=== PATIENT | female | born 1995 | race Caucasian/White ===

== ENCOUNTER 2021-08-20 16:30 | Emergency (ER) | payer OTHER ==
[~2021-08-20] VITALS: Ht 160 cm; Wt 54.4 kg
[2021-08-20] MEDS ORDERED: LORazepam INJ 2 MG/ML (ATIVAN) VIAL IVP ONE (17:15)
[2021-08-20] MEDS ORDERED: ONDANSETRON 4 MG/2 ML (SDV) Z0FRAN IVP ONE (17:15)
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
[2021-08-20] MEDS ORDERED: IOHEXOL 350 MG/ML 100 ML (OMNIPAQUE 350) VIAL IV ONE (18:00)
[2021-08-20] MEDS ORDERED: HOLD METFORMIN - RECEIVED CONTRAST 20 ML VIAL IV SCH (18:00)
[2021-08-20] MEDS ORDERED: NS 100 ML (IVPB) BAG IV ONE (18:00)
[2021-08-20 18:30] VITALS: BP 132/88
[2021-08-20] MEDS ORDERED: KETOROLAC 30 MG/ML VIAL IVP ONE (18:30)
== END 2021-08-20 18:30 | disposition home or self-care (01) ==
LOC: ER 16:38
DX: M54.2 Cervicalgia (principal); M54.6 Pain in thoracic spine; I10 Essential (primary) hypertension
CPT/HCPCS: 70450; 71260; 72125

== ENCOUNTER 2022-07-24 08:02 | Emergency (ER) | payer BC ==
[~2022-07-24] VITALS: Ht 160 cm; Wt 62.0 kg
[2022-07-24 08:10] VITALS: BP 146/99
--- NOTE | 2022-07-24 08:30 | ED General ---
General Chief Complaint: Cough/Cold/Flu Symptoms Stated Complaint: CHEST CONGESTION | FLU A + | 9WKS Nursing Triage Note: ARRIVED VIA AMB TO ROOM 10. PT STATES SHE TESTED POSITIVE FOR FLU A AND IS 9 WEEKS GESTATION. PT COMPLAINS OF CONT FEVER, SOA, VOMITING, AND PAIN IN HER CHEST. PT STATES SHE TOOK TYLENOL AT 0200. HAS A SCRIPT FOR PROMETHAZINE. Source of Information: Patient Exam Limitations: No Limitations History of Present Illness Date Seen by Provider: Jul 24, 2022 Time Seen by Provider: 08:29 Initial Comments Patient is a 27-year-old G3, P2 approximately 9 weeks EGA who presents emergency room with a chief complaint of chest burning, discomfort, nausea and influenza A at walk-in clinic yesterday. Patient states that she has been taking Tylenol, promethazine without relief of symptoms. She is on Tamiflu. SHe has had nausea vomiting and diarrhea for the last 3 days, woke up with the burning and congestion in the morning. She is not even able to hold down water. She states her urine is clear, no dysuria. No abnormal vaginal discharge. She had her dating ultrasound yesterday. SHe sees Dr. Kasper at [facility] for care. Cough is nonproductive. She has used Delsym. All other review of systems reviewed and negative except as stated. Timing/Duration: 4-6 Hours Severity: Severe Associated Systoms: Chest Pain ("Burning"), Cough, Nausea/Vomiting, Shortness of Air Allergies and Home Medications Allergies Coded Allergies: No Known Drug Allergies (Unverified , 08/20/21) Patient Home Medication List Home Medication List Reviewed: Yes Ondansetron (Ondansetron Odt) 4 Mg Tab.rapdis, 4 MG SL Q8H PRN for NAUSEA/VOMITING Prescribed by: BELLE BARRIGA on 07/24/2252 Pseudoephedrine HCl (Pseudoephedrine HCl) 60 Mg Tablet, 60 MG PO Q6H PRN for congestion Prescribed by: BELLE BARRIGA on 07/24/2252 Review of Systems Review of Systems Constitutional: see HPI, chills EENTM: throat pain Respiratory: cough Cardiovascular: chest pain Gastrointestinal: nausea, vomiting Genitourinary: no symptoms reported : Yes Musculoskeletal: no symptoms reported Skin: no symptoms reported All Other Systems Reviewed Negative Unless Noted: Yes Past Qpznvre-Wycgvk-Lqwpch Hx Patient Social History Tobacco Use?: No Substance use?: No Alcohol Use?: No Immunizations Up To Date Second COVID19 Vaccination Jez: UNKNOWN COVID19 Vaccine Team Assistant: UNKNOWN Past Medical History Surgeries: No Respiratory: No Cardiac: Yes Hypertension 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 oz. 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 Skin: Normal Color, Warm/Dry Progress/Results/Core Measures Suspected Sepsis SIRS Temperature: Pulse: 123 Respiratory Rate: 16 Blood Pressure 146 /99 Mean: 115 Results/Orders My Orders Orders - BELLE BARRIGA MD Antacid Suspension (Mylanta Suspension (07/24/22 08:45) Lidocaine 2% Viscous 15 Ml (Xylocaine Vi (07/24/22 08:45) Heart Tones (07/24/22 08:45) Famotidine Tablet (Pepcid Tablet) (07/24/22 09:00) Medications Given in ED Current Medications Medications Dose Ordered Sig/Nery Route Start Time Stop Time Status Last Admin Dose Admin Al Hydrox/Mg Hydrox/Simethicone 30 ml ONCE ONCE PO 07/24/22 08:45 07/24/22 08:46 DC 07/24/22 08:58 30 ML Famotidine 20 mg ONCE ONCE PO 07/24/22 09:00 07/24/22 09:01 DC 07/24/22 08:59 20 MG Lidocaine HCl 5 ml ONCE ONCE PO 07/24/22 08:45 07/24/22 08:46 DC 07/24/22 08:58 5 ML Vital Signs/I&O 07/24/22 08:10 Temp 38.2 Pulse 123 Resp 16 B/P (MAP) 146/99 (115) Pulse Ox 99 O2 Delivery Room Air Capillary Refill : Less Than 3 Seconds Blood Pressure Mean: 115 Progress Note : Time: 09:07 Progress Note Patient is a 27-year-old female burning throat and upper chest pain. Diagnosed with influenza a yesterday. Heart positive heart tones in the 170s. Clinically not dehydrated. Considered IV fluid with saline hydration however she had moist mucous membranes, does not appear dry. Consideration for imaging However history and physical exam do not support need. She was treated with maalox and lidocaine and pepcid. Will write for zofran and advise pepcid over the counter. REcommend follow up with OB and continue tamiflu. Departure Impression Primary Impression: Influenza A Additional Impressions: GERD (gastroesophageal reflux disease) Qualified Codes: K21.9 - Gastro-esophageal reflux disease without esophagitis 9 weeks gestation of Disposition: 01 HOME, SELF-CARE Condition: Improved Departure-Patient Inst. Decision time for Depature: 09:10 Referrals: ROJAS KASPER MD, JULIE A MD (PCP/Family) Primary Care Physician Patient Instructions: Acid Reflux (Gastroesophageal Reflux Disease) During Pre gnancy Add. Discharge Instructions: Consider starting over the counter Pepcid 20mg tablets twice daily to help with acid-reflux type symptoms. You can supplement with Maalox at home as needed/ follow packaging directions. Zofran 4mg tablets every 8 hours as needed for nausea. Vitamin B6 over the counter with "unisom" over the counter can also help with na usea. John (john ismael, john candies) can also help with nausea. Return to the Emergency Department for any new, concerning or emergent complaints. Scripts Pseudoephedrine HCl (Pseudoephedrine HCl) 60 Mg Tablet 60 MG PO Q6H PRN for congestion, #30 TAB Prov: BELLE BARRIGA MD 07/24/22 Ondansetron (Ondansetron Odt) 4 Mg Tab.rapdis 4 MG SL Q8H PRN for NAUSEA/VOMITING, #20 TAB Prov: BELLE BARRIGA MD 07/24/22 Copy Copies To 1: ROJAS KASPER MD, KATHRYN M MD Jul 24, 2022 08:30
[2022-07-24] MEDS ORDERED: LIDOCAINE 2% VISCOUS 15 ML UDC PO ONE (08:45)
[2022-07-24] MEDS ORDERED: ANTACID SUSP 30 ML UDC (MYLANTA) PO ONE (08:45)
[2022-07-24] MEDS ORDERED: FAMOTIDINE 20 MG (PEPCID) TABLET PO ONE (09:00)
[2022-07-24] MEDS ORDERED: PSEU60TA88 PO (09:52)
[2022-07-24] MEDS ORDERED: ONDA4TAB11 SL (09:52)
== END 2022-07-24 09:55 | disposition home or self-care (01) ==
LOC: EDUNIT# 08:02 → ER 08:06
DX: O98.511 Other viral diseases complicating pregnancy, first trimester (principal); J10.1 Influenza due to other identified influenza virus with other respiratory manifestations; O99.611 Diseases of the digestive system complicating pregnancy, first trimester; K21.9 Gastro-esophageal reflux disease without esophagitis; Z3A.09 9 weeks gestation of pregnancy

== ENCOUNTER → 2022-07-29 | Outpatient (CLI) | payer BC, OTHER ==
[~2022-07-29] MED LIST: ONDA4TAB11 SL; PSEU60TA88 PO
== END ==
LOC: CARD 15:00
PROVIDERS: ATTEND Family Medicine
DX: I34.0 Nonrheumatic mitral (valve) insufficiency (principal); O10.919 Unspecified pre-existing hypertension complicating pregnancy, unspecified trimester
CPT/HCPCS: 93306

== ENCOUNTER 2022-12-25 15:27 | Outpatient (CLI) | payer BC ==
[~2022-12-25] VITALS: Ht 161 cm; Wt 62.0 kg
[2022-12-25 15:30] VITALS: BP 132/84
[2022-12-25 16:25] VITALS: BP 140/97
--- NOTE | 2022-12-26 08:15 | Physician Query-Final Dx ---
DONNA,12/26/22 0815: Clinic Account Progress/Dx Physician Query: Please give diagnosis Please include # weeks gestation Date of Service Dec 25, 2022 at 15:27 ROJAS NAVARRETE MD 12/26/22 2142: Clinic Account Progress/Dx DIAGNOSIS: Diagnosis Pelvic pain in - no contractions, reassuring status Chronic hypertension complicating - blood pressure controlled on labe talol Third trimester 32 weeks gestation DONNA,SepDec 26, 2022 08:15 ROJAS NAVARRETE MD Dec 26, 2022 21:42
== END 2022-12-25 17:03 | disposition home or self-care (01) ==
LOC: LDRP 15:27 → WSo 15:27
PROVIDERS: ATTEND Family Medicine
DX: O16.3 Unspecified maternal hypertension, third trimester (principal); O99.891 Other specified diseases and conditions complicating pregnancy; R10.2 Pelvic and perineal pain; Z3A.32 32 weeks gestation of pregnancy
CPT/HCPCS: 99213

== ENCOUNTER 2023-01-22 01:41 | Inpatient (IN) | payer MEDICAID ==
[2023-01-22] VITALS (38 sets, daily range): BP systolic 106–158; BP diastolic 61–89
[~2023-01-22] VITALS: Ht 160 cm; Wt 71.7 kg
[2023-01-22 02:29] LABS: BILIRUBIN,URINE NEGATIVE (NEGATIVE); CLARITY,URINE CLEAR; COLOR,URINE YELLOW; GLUCOSE, URINE (UA) NEGATIVE (NEGATIVE); KETONES,URINE NEGATIVE (NEGATIVE); LEUKOCYTE ESTERASE ,URINE NEGATIVE (NEGATIVE); NITRITE,URINE NEGATIVE (NEGATIVE); PROTEIN,URINE NEGATIVE (NEGATIVE)
[2023-01-22 02:44] LABS: AMORPHOUS SEDIMENT,UR LARGE AMOR URATES /LPF; BACTERIA,URINE NEGATIVE /HPF; SQUAMOUS EPITHELIAL CELL,UR 0-2 /HPF
[2023-01-22] MEDS ORDERED: MINERAL OIL 30 ML UDC TOP PRN (03:00)
[2023-01-22] MEDS ORDERED: AMPICILLIN FOR IV USE 2,000 MG in NS (IVPB) 50 ML IV ONE (03:00)
[2023-01-22] MEDS ORDERED: OXYTOCIN PRE-MIX DRIP 500 ML IV SCH ×2 (03:00→12:30)
[2023-01-22 03:15] LABS: URINE CREATININE FOR RATIO 79 MG/DL (30-125)
[2023-01-22 03:16] LABS: URINE PROTEIN FOR RATIO ONLY < 6 MG/DL (6-12)
[2023-01-22 03:25] LABS: BASOPHILS % (AUTO) 0 % (0-10); EOSINOPHILS # (AUTO) 0.1 10^3/uL (0.0-0.3); EOSINOPHILS % (AUTO) 1 % (0-10); HEMATOCRIT 29 % (35-52); HEMOGLOBIN 10.1 g/dL (11.5-16.0); LYMPHOCYTES # (AUTO) 1.8 10^3/uL (1.0-4.0); LYMPHOCYTES % (AUTO) 21 % (12-44); MEAN CORPUSCULAR HEMOGLOBIN 31 pg (25-34); MEAN CORPUSCULAR HGB CONC 35 g/dL (32-36); MEAN CORPUSCULAR VOLUME 88 fL (80-99); MONOCYTES % (AUTO) 11 % (0-12); NEUTROPHILS # (AUTO) 5.8 10^3/uL (1.8-7.8); NEUTROPHILS % (AUTO) 67 % (42-75); PLATELET COUNT 159 10^3/uL (130-400); WHITE BLOOD COUNT 8.7 10^3/uL (4.3-11.0)
[2023-01-22 03:32] LABS: ALBUMIN 3.5 GM/DL (3.2-4.5)
[2023-01-22 03:33] LABS: POTASSIUM 3.8 MMOL/L (3.6-5.0)
[2023-01-22 03:34] LABS: CALCIUM 9.4 MG/DL (8.5-10.1)
[2023-01-22 03:35] LABS: TOTAL PROTEIN 6.5 GM/DL (6.4-8.2)
[2023-01-22 03:37] LABS: BILIRUBIN,TOTAL 0.5 MG/DL (0.1-1.0)
[2023-01-22 03:39] LABS: CREATININE SERUM 0.72 MG/DL (0.60-1.30)
[2023-01-22] MEDS: D5 LR IV SOLUTION 1,000 ML IV SCH ×2 (03:43→11:07)
[2023-01-22] MEDS ORDERED: CATHETER FLUSH 10 ML SYR IV SCH ×2 (06:00→14:00)
[2023-01-22] MEDS ORDERED: LABE100T9 PO (06:32)
[2023-01-22] MEDS ORDERED: FERR-84 PO (06:32)
[2023-01-22] MEDS ORDERED: PNV11TAB PO (06:32)
--- NOTE | 2023-01-22 06:32 | History & Physical-OB ---
OB - Chief Complaint & HPI Date/Time Date of Admission: Date of Admission: January 22, 2023 at 02:41 Date seen by a Provider: January 22, 2023 Time Seen by a Provider: 08:10 Chief Complaint/History OB-Reason for Admission/Chief: Rupture of Membranes Hx : 3 Hx Para: 2 Expected Date of Delivery: Feb 19, 2023 Gestational Age in Weeks: 36 Gestational Age in Days: 0 History of Labs O+, antibody neg, RI. HIV/hepB/HepC/RPR NR. GC/chlamydia neg. 1 hour glucola nml. Other at 36w0d with complicated by chronic HTN on labetalol and asa (just stopped aspirin on 01/20), elevated LFTs, mild mitral regurgitation, f ollowed by high school foreign language teacher presented with leaking of fluid starting at midnight and found to have prelabor rupture of membranes. She has been getting weekly BPPs, most recent on 01/20. Allergies and Home Medications Allergies Coded Allergies: zolpidem (Verified Allergy, 01/22/23) Patient Home Medication List Home Medication List Reviewed: Yes Famotidine (Acid Stove Mounter (FAMOTIDINE)) 20 Mg Tablet, 20 MG PO DAILY, (Reported) Entered as Reported by: ROJAS NAVARRETE on 01/22/23 1008 Last Action: Reviewed Ferrous Sulfate (Iron) 325 Mg (65 Mg Iron) Tablet, 325 MG PO DAILY, (Reported) Entered as Reported by: ROJAS NAVARRETE on 01/22/23 0632 Last Action: Reviewed Labetalol HCl (Labetalol HCl) 100 Mg Tablet, 100 MG PO BID, (Reported) Entered as Reported by: ROJAS NAVARRETE on 01/22/23 0632 Last Action: Reviewed Omeprazole (Omeprazole) 20 Mg Tab.rap.dr, 20 MG PO DAILY, (Reported) Entered as Reported by: ROJAS NAVARRETE on 01/22/23 100 Last Action: Reviewed Ondansetron (Ondansetron Odt) 4 Mg Tab.rapdis, 4 MG SL Q8H PRN for NAUSEA/VOMITING Prescribed by: BELLE BARRIGA on 07/24/22 0952 Last Action: Reviewed Rgd884/Ferrous Fumarate/FA (Gs Vitamins Tablet) 28 Mg Iron-800 Mcg Tablet, 1 TAB PO DAILY, (Reported) Entered as Reported by: ROJAS NAVARRETE on 01/22/23 0632 Last Action: Reviewed OB - History Hx of Present Ultrasounds: Normal mid trimester US Medical Complications: Cardiovascular (chronic HTN) Information Induced Hypertension: No Maternal Gestational Diabetes: No Hemorrhage: No Obstetrical History Hx : 3 Hx Para: 2 Hx # Term Pregnancies: 2 Hx # Pregnancies: 0 Number of Living Children: 2 Hx Termination: No Hx Multiple Gestation: No Hx Ectopic : No Hx Stillbirth: No Hx Complication: Yes (chronic hypertension) Hx Induced Hypertens: No Hx Maternal Gestational Diabet: No Hx Hemorrhage: No Delivery History Hx Dystocia: No Hx Forceps Assisted Delivery: No Hx Vacuum Extraction Assisted: No Hx Placenta Abnormality: No Hx Distress: No Hx Large For Gestational Age I: No Hx Small for Gestational Age I: No Hx Section: No Hx Vaginal Delivery Post C-Sec: No Hx Blood Disorders: No Adverse Rxn to Tranfusion: No Patient Past Medical History PMHx: Hypertension Social History/Family History Alcohol Use: Denies Use Recreational Drug Use: No Smoking Cessation: Never smoker 2nd Hand Smoke Exposure: No Immunizations Influenza Vaccine Up-to-Date: Yes; Up-to-Date Hepatitis A: Yes Hepatitis B: Yes Tetanus Booster (TDap): Less than 5yrs Rubella: immune RPR/VDRL: Negative GBS Status: Unknown HBsAG: Negative OB - Admission Exam Physical Exam Vitals: Vital Signs 01/22/23 02:09 Temp 37.2 Pulse 105 Resp 22 Pulse Ox 98 O2 Delivery Room Air HEENT: NCAT Abdomen: Non tender Cervical Dilatation: 1cm Effacement: 0% Station: -3 Membranes: Ruptured Heart Rate: 150's Decelerations: Variable Decelerations Short Term Variability: Present Duplex Trimmer Variability: Average (6-25) Contractions on Admission: None Pérez Scoring Tool (Modified) Dilation (cm): 1-2cm (1) Effacement (%): 0-30% (0) Descent/Station: -3 (0) Cervix Consistency: Medium(1) Cervix Position: Posterior (0) Add 1 point for: Each previous vaginal delivery (1) (2) Pérez Score: 4 Labs Laboratory Tests Test 01/22/23 02:15 01/22/23 02:18 01/22/23 03:05 Range/Units Urine Color YELLOW Urine Clarity CLEAR Urine pH 6.0 5-9 Urine Specific [place] 1.020 1.016-1.022 Urine Protein < 6 L 6-12 MG/DL Urine Glucose (UA) NEGATIVE NEGATIVE Urine Ketones NEGATIVE NEGATIVE Urine Nitrite NEGATIVE NEGATIVE Urine Bilirubin NEGATIVE NEGATIVE Urine Urobilinogen 0.2 < = 1.0 MG/DL Urine Leukocyte Esterase NEGATIVE NEGATIVE Urine RBC (Auto) NEGATIVE NEGATIVE Urine RBC NONE /HPF Urine WBC NONE /HPF Urine Squamous Epithelial Cells 0-2 /HPF Urine Crystals PRESENT H /LPF Urine Amorphous Sediment LARGE ALISE URATES H /LPF Urine Bacteria NEGATIVE /HPF Urine Casts NONE /LPF Urine Mucus NEGATIVE /LPF Urine Culture Indicated NO Urine Creatinine 79 30-125 MG/DL Urine Protein/Creatinine Ratio Membranes Rupture POSITIVE White Blood Count 8.7 4.3-11.0 10^3/uL Red Blood Count 3.29 L 3.80-5.11 10^6/uL Hemoglobin 10.1 L 11.5-16.0 g/dL Hematocrit 29 L 35-52 % Mean Corpuscular Volume 88 80-99 fL Mean Corpuscular Hemoglobin 31 25-34 pg Mean Corpuscular Hemoglobin Concent 35 32-36 g/dL Red Cell Distribution Width 14.1 10.0-14.5 % Platelet Count 159 130-400 10^3/uL Mean Platelet Volume 11.0 9.0-12.2 fL Immature Granulocyte % (Auto) 1 % Neutrophils (%) (Auto) 67 42-75 % Lymphocytes (%) (Auto) 21 12-44 % Monocytes (%) (Auto) 11 0-12 % Eosinophils (%) (Auto) 1 0-10 % Basophils (%) (Auto) 0 0-10 % Neutrophils # (Auto) 5.8 1.8-7.8 10^3/uL Lymphocytes # (Auto) 1.8 1.0-4.0 10^3/uL Monocytes # (Auto) 1.0 0.0-1.0 10^3/uL Eosinophils # (Auto) 0.1 0.0-0.3 10^3/uL Basophils # (Auto) 0.0 0.0-0.1 10^3/uL Immature Granulocyte # (Auto) 0.0 0.0-0.1 10^3/uL Sodium Level 138 135-145 MMOL/L Potassium Level 3.8 3.6-5.0 MMOL/L Chloride Level 107 98-107 MMOL/L Carbon Dioxide Level 20 L 21-32 MMOL/L Anion Gap 11 5-14 MMOL/L Blood Urea Nitrogen 9 7-18 MG/DL Creatinine 0.72 0.60-1.30 MG/DL Estimat Glomerular Filtration Rate 118 BUN/Creatinine Ratio 13 Glucose Level 89 70-105 MG/DL Calcium Level 9.4 8.5-10.1 MG/DL Corrected Calcium 9.8 8.5-10.1 MG/DL Total Bilirubin 0.5 0.1-1.0 MG/DL Aspartate Amino Transf (AST/SGOT) 17 5-34 U/L Alanine Aminotransferase (ALT/SGPT) 19 0-55 U/L Alkaline Phosphatase 539 H 40-136 U/L Total Protein 6.5 6.4-8.2 GM/DL Albumin 3.5 3.2-4.5 GM/DL OB - Assessment/Plan/Diagnosis Assessment Admission Dx prelabor rupture of membranes Third trimester 36 weeks gestation Chronic hypertension GBS unknown Admission Status: Inpatient Order (span 2 midnights) Reason for Inpatient Admission: Labor, delivery and course Plan Problems: (1) premature rupture of membranes (PPROM) with unknown onset of labor Assessment & Plan: Start pitocin as well as ampicillin for GBS unknown status . At time of my exam having recurrent variable decels, will try position changes, consider amnioinfusion if persistent. Updated Mems Engineer transition program manager. (2) Chronic hypertension affecting Assessment & Plan: BP well controlled on labetalol, monitor closely. ROJAS NAVARRETE MD January 22, 2023 06:32
[2023-01-22] MEDS ORDERED: AMPICILLIN FOR IV USE 1,000 MG in NS (IVPB) 50 ML IV SCH (07:00)
[2023-01-22] MEDS ORDERED: fentaNYL 2 mcg/ml BUPIVA 0.125 100 ML ONE (08:35)
[2023-01-22] MEDS ORDERED: fentaNYL 2 mcg/ml BUPIVA 0.125 100 ML EPI SCH (09:30)
[2023-01-22] MEDS ORDERED: diphenhydrAMINE 50 MG/ML INJ (BENADRYL) IV PRN (09:30)
[2023-01-22] MEDS ORDERED: METOCLOPRAMIDE INJ 10 MG/2 ML (REGLAN) IV PRN (09:30)
[2023-01-22] MEDS ORDERED: LACTATED RINGERS 1,000 ML IV SCH (09:30)
[2023-01-22] MEDS ORDERED: NALOXONE 0.4 MG/ML 1 ML (NARCAN) VIAL IV PRN ×2 (09:30)
[2023-01-22] MEDS ORDERED: ONDANSETRON 4 MG/2 ML (SDV) Z0FRAN IV PRN (09:30)
[2023-01-22] MEDS ORDERED: FAMO20TA3 PO (10:08)
[2023-01-22] MEDS ORDERED: OMEP-401 PO (10:08)
--- NOTE | 2023-01-22 12:28 | OB Labor & Delivery Record ---
Vag Delivery Note Vag Delivery Note Date of Delivery: 01/22/23 Preoperative Diagnosis: Anabelle Quevedo is a (28 /Para 3 / 2,Gestational Age (wks)36with 0 days Postoperative Diagnosis: Same Surgeon: ROJAS NAVARRETE Anesthesia: Epidural Delivery Type: Findings: Viable female infant, apgars [], weight 5#12 Lacerations: none Intact placenta with 3 vessel cord. No nuchal cord, body cord or shoulder dystocia Estimated Blood Loss: 250 ml Complications: None Condition: Stable Description of Procedure: The patient is a 28 year old female who presented with PPROM. She was admitted and informed consent was obtained. Her labor course was remarkable for augmentation with pitocin. She progressed to complete dilatation and began to push. She was then set up for delivery. The infant's head was delivered atraumatically in the ALLAN position. The shoulders and remainder of the 's body were then delivered without difficulty. Upon delivery, the infant was vigorous and placed on maternal chest and the mouth and nares were bulb suctioned. After a delay cord was doubly clamped and cut and the remained on maternal chest. An intact placenta with 3-vessel cord delivered via Maia and there was found to be minimal bleeding.~ Vigorous fundal massage was performed and the fundus was found to be firm. IV oxytocin was given. Examination of the vagina and perineum revealed no lacerations. Following the delivery, sponge, instrument and needle counts were correct. Mom and baby were both in stable condition in the labor suite. Vitals - Labs Vital Signs - I&O Vital Signs Date Time Temp Pulse Resp B/P (MAP) Pulse Ox O2 Delivery O2 Flow Rate FiO2 01/22/23 09:50 102 18 119/72 (88) 98 Room Air 01/22/23 09:45 100 18 116/73 (87) 97 Room Air 01/22/23 09:40 107 18 111/75 (87) 97 Room Air 01/22/23 09:35 108 18 106/71 (83) 97 Room Air 01/22/23 09:30 94 18 109/72 (84) 97 Room Air 01/22/23 09:25 105 18 112/76 (88) 98 Room Air 01/22/23 09:20 126 18 126/79 (95) 98 Room Air 01/22/23 09:15 133 18 132/73 (92) 98 Room Air 01/22/23 09:10 122 18 121/76 (91) 98 Room Air 01/22/23 09:05 93 18 143/72 (95) 98 Room Air 01/22/23 09:00 36.9 110 18 125/86 (99) 98 Room Air 01/22/23 08:55 116 18 154/85 (108) 98 Room Air 01/22/23 08:50 98 18 151/89 (109) 96 Room Air 01/22/23 08:25 90 18 139/83 (101) Room Air 01/22/23 07:55 94 18 158/78 (104) Room Air 01/22/23 07:30 37.3 94 18 132/84 (100) Room Air 01/22/23 02:09 37.2 105 22 98 Room Air I & O 01/22/23 07:00 Intake Total 64.8 ml Balance 64.8 ml Labs Laboratory Tests 01/22/23 02:15: Urine Color YELLOW, Urine Clarity CLEAR, Urine pH 6.0, Urine Specific [place] 1.020, Urine Protein < 6L, Urine Glucose (UA) NEGATIVE, Urine Ketones NEGATIVE, Urine Nitrite NEGATIVE, Urine Bilirubin NEGATIVE, Urine Urobilinogen 0.2, Urine Leukocyte Esterase NEGATIVE, Urine RBC (Auto) NEGATIVE, Urine RBC NONE, Urine WBC NONE, Urine Squamous Epithelial Cells 0-2, Urine Crystals PRESENTH, Urine Amorphous Sediment LARGE ALISE URATESH, Urine Bacteria NEGATIVE, Urine Casts NON E, Urine Mucus NEGATIVE, Urine Culture Indicated NO, Urine Creatinine 79, Urine Protein/Creatinine Ratio 01/22/23 02:18: Membranes Rupture POSITIVE 01/22/23 03:05: White Blood Count 8.7, Red Blood Count 3.29L, Hemoglobin 10.1L, Hematocrit 29L, Mean Corpuscular Volume 88, Mean Corpuscular Hemoglobin 31, Mean Corpuscular Hemoglobin Concent 35, Red Cell Distribution Width 14.1, Platelet Count 159, Shima n Platelet Volume 11.0, Immature Granulocyte % (Auto) 1, Neutrophils (%) (Auto) 67, Lymphocytes (%) (Auto) 21, Monocytes (%) (Auto) 11, Eosinophils (%) (Auto) 1, Basophils (%) (Auto) 0, Neutrophils # (Auto) 5.8, Lymphocytes # (Auto) 1.8, Monocytes # (Auto) 1.0, Eosinophils # (Auto) 0.1, Basophils # (Auto) 0.0, Immature Granulocyte # (Auto) 0.0, Sodium Level 138, Potassium Level 3.8, Chloride Level 107, Carbon Dioxide Level 20L, Anion Gap 11, Blood Urea Nitrogen 9, Creatinine 0.72, Estimat Glomerular Filtration Rate 118, BUN/Creatinine Ratio 13, Glucose Level 89, Calcium Level 9.4, Corrected Calcium 9.8, Total Bilirubin 0.5, Aspartate Amino Transf (AST/SGOT) 17, Alanine Aminotransferase (ALT/SGPT) 19, Alkaline Phosphatase 539H, Total Protein 6.5, Albumin 3.5 ROJAS NAVARRETE MD January 22, 2023 12:28
[2023-01-22] MEDS ORDERED: WITCH HAZEL(TUCKS) 40 EA JAR TOP PRN (12:30)
[2023-01-22] MEDS ORDERED: BENZOCAINE/MENTHOL (DERMOPLAST) 56 ML CAN TP PRN (12:30)
[2023-01-22] MEDS: IBUPROFEN 600 MG (MOTRIN) TAB PO PRN ×2 (16:12→22:47)
[2023-01-22] MEDS: DOCUSATE SODIUM 100 MG (COLACE) CAP PO SCH (20:58)
[2023-01-23 04:30] VITALS: BP 130/77
[2023-01-23] MEDS: IBUPROFEN 600 MG (MOTRIN) TAB PO PRN ×2 (04:30→10:17)
[2023-01-23 06:57] LABS: BASOPHILS % (AUTO) 0 % (0-10); EOSINOPHILS # (AUTO) 0.1 10^3/uL (0.0-0.3); EOSINOPHILS % (AUTO) 1 % (0-10); HEMATOCRIT 29 % (35-52); HEMOGLOBIN 9.7 g/dL (11.5-16.0); LYMPHOCYTES % (AUTO) 23 % (12-44); MEAN CORPUSCULAR HEMOGLOBIN 31 pg (25-34); MEAN CORPUSCULAR HGB CONC 34 g/dL (32-36); MEAN CORPUSCULAR VOLUME 90 fL (80-99); MEAN PLATELET VOLUME 11.4 fL (9.0-12.2); MONOCYTES # (AUTO) 0.9 10^3/uL (0.0-1.0); MONOCYTES % (AUTO) 10 % (0-12); NEUTROPHILS # (AUTO) 5.4 10^3/uL (1.8-7.8); NEUTROPHILS % (AUTO) 64 % (42-75); PLATELET COUNT 146 10^3/uL (130-400); WHITE BLOOD COUNT 8.4 10^3/uL (4.3-11.0)
[2023-01-23] MEDS ORDERED: IBUP-844 PO (07:45)
[2023-01-23 08:54] VITALS: BP 134/90
[2023-01-23] MEDS: DOCUSATE SODIUM 100 MG (COLACE) CAP PO SCH (08:54)
[2023-01-23 12:00] VITALS: BP 132/72
--- NOTE | 2023-01-23 12:22 | Anesthesia-Regional Post-Op ---
Regional Patient Condition Mental Status: Alert, Oriented x3 Circulation: Same as Pre-Op Headache: Absent Sensation: Full Recovery Motor Block: Absent Post Op Complications Complications None Follow Up Care/Instructions Patient Instructions None needed. Anesthesia/Patient Condition Patient is doing well, no complaints, stable vital signs, no apparent adverse anesthesia problems. No complications reported per nursing. JANETT STEPHENS DO January 23, 2023 12:22
--- NOTE | 2023-01-23 14:12 | Discharge Summary ---
Discharge Summary Hospital Course Problems/Diagnosis: (1) premature rupture of membranes (PPROM) with unknown onset of labor (2) Chronic hypertension affecting Hospital Course Date of Admission: January 22, 2023 at 02:41 Admission Diagnosis : Family Physician/Provider: Rojas Kasper MD Date of Discharge: 01/23/23 Discharge Diagnosis: s/p spontaneous vaginal delivery acute blood loss anemia, asymptomatic chronic hypertension Hospital Course: 28 yo with chronic hypertension since adolescence, G3 now P3 presented with leaking fluid at 36w0d found to have ruptured membranes, augmented with pitocin and delivered via a viable female . Unremarkable course, continued on SHOWROOM SALES ASSISTANT labetalol and iron on d/c. Labs and Pending Lab Test: Laboratory Tests 01/23/23 06:00: White Blood Count 8.4, Red Blood Count 3.17L, Hemoglobin 9.7L, Hematocrit 29L, Mean Corpuscular Volume 90, Mean Corpuscular Hemoglobin 31, Mean Corpuscular Hemoglobin Concent 34, Red Cell Distribution Width 14.0, Platelet Count 146, Mean Platelet Volume 11.4, Immature Granulocyte % (Auto) 1, Neutrophils (%) (Auto) 64, Lymphocytes (%) (Auto) 23, Monocytes (%) (Auto) 10, Eosinophils (%) (Auto) 1, Basophils (%) (Auto) 0, Neutrophils # (Auto) 5.4, Lymphocytes # (Auto) 2.0, Monocytes # (Auto) 0.9, Eosinophils # (Auto) 0.1, Basophils # (Auto) 0.0, Immature Granulocyte # (Auto) 0.0 Home Meds Active Ibu (Ibuprofen) 600 Mg Tablet 600 Mg PO Q6HR PRN Ondansetron Odt (Ondansetron) 4 Mg Tab.rapdis 4 Mg SL Q8H PRN Reported Acid Cargo Agent (FAMOTIDINE) (Famotidine) 20 Mg Tablet 20 Mg PO DAILY Omeprazole 20 Mg Tab.rap.dr 20 Mg PO DAILY Gs Vitamins Tablet (Vvc882/Ferrous Fumarate/FA) 28 Mg Iron-800 Mcg Tablet 1 Tab PO DAILY Labetalol HCl 100 Mg Tablet 100 Mg PO BID Iron (Ferrous Sulfate) 325 Mg (65 Mg Iron) Tablet 325 Mg PO DAILY Patient Discharge Instructions Follow up with Dr. Kasper in 6 weeks for visit Activity: Activity as Tolerated (avoid strenuous activity x 6 weeks) Discharge Diet: No Restrictions Symptoms to Report to : Swelling Increased, Pain/Pressure in Chest, Vaginal Bleeding Increase, Vaginal Discharge Foul, Dizziness/Fainting, Shortness of Breath For Any Problems or Questions: Contact Your Physician Discharge Physical Examination Allergies: Coded Allergies: zolpidem (Verified Allergy, Unknown, 01/22/23) Vitals & I&Os Vital Signs Date Time Temp Pulse Resp B/P (MAP) Pulse Ox O2 Delivery O2 Flow Rate FiO2 01/23/23 12:00 36.6 87 18 132/72 (92) 97 Room Air General Appearance: No Apparent Distress Respiratory: Lungs Clear, Normal Breath Sounds Cardiovascular: Regular Rate, Rhythm, No Murmur Gastrointestinal: Other (fundus firm below umbilicus nontender) Extremity: No Pedal Edema Skin: Normal Color, Warm/Dry Neurologic/Psychiatric: Alert, Normal Mood/Affect Discharge Summary Date of Admission January 22, 2023 at 02:41 Date of Discharge Discharge Date: January 23, 2023 Supervisory-Addendum Brief Verification & Attestation Participated in pt care: other Personally performed: exam, history, MDM Care discussed with: other Procedures: n/a, other N/A no student in this case ROJAS KASPER MD January 23, 2023 14:12
[2023-01-23 15:45] VITALS: BP 132/72
[2023-01-24] MEDS ORDERED: FERROUS SULF 325 MG (IRON) TAB PO SCH (07:00)
== END 2023-01-23 15:45 | disposition home or self-care (01) | DRG 806 ==
LOC: WSo 01:41 → LDRP 01:41 → WSo 02:40 → LDRP 02:41
PROVIDERS: ADMIT Family Medicine; ATTEND Family Medicine
PROC: 10E0XZZ Delivery of Products of Conception, External Approach (ICD-10-PCS; principal; 2023-01-22)
DX: O60.14X0 Preterm labor third trimester with preterm delivery third trimester, not applicable or unspecified (principal); D62 Acute posthemorrhagic anemia; Z37.0 Single live birth; Z3A.36 36 weeks gestation of pregnancy; O16.4 Unspecified maternal hypertension, complicating childbirth; O90.81 Anemia of the puerperium
CPT/HCPCS: 36415; 80053; 81000; 82570; 84112; 84156; 85025; 86780; 86850; 86900; 86901; 99212

== ENCOUNTER 2023-05-19 12:08 | Emergency (ER) | payer MEDICAID ==
[~2023-05-19] VITALS: Ht 160 cm; Wt 60.4 kg
[~2023-05-19 12:08] MED LIST changes: +FAMO-356 PO; +FERR-84 PO; +IBUP-844 PO; +LABE100T9 PO; +OMEP-401 PO; +PNV11TAB PO
--- NOTE | 2023-05-19 12:23 | ED General ---
General Chief Complaint: General Problems/Pain Stated Complaint: ELEVATED BLOOD PRESSURE Nursing Triage Note: Patient c/o elevated blood pressure with Hx. of Hypertension. Patient states today her b/p was 170/102. Patient denies any EDMONDS or chest pain. Patient denies any increased stress. Patient states she has had Hypertension since she was in 8th grade. Source of Information: Patient Exam Limitations: No Limitations (AISHA POWELL) History of Present Illness Date Seen by Provider: May 19, 2023 Time Seen by Provider: 12:22 Initial Comments Patient is a 28-year-old female presents ED for elevated blood pressure. History of hypertension since 10 years of age. She currently on labetalol 100 mg twice a day. She is about 12 weeks . She states today she felt lightheaded while doing a scrapbook. She took her blood pressure which read 170/102. Patient denies of any current chest pain, shortness of breath, headache, visual changes, frequent urination, abdominal pain, blurred vision. She states her blood pressure has been running around 127/84. She denies of any unilateral muscle weakness or sensory changes. No known history of coronary artery disease. She does not follow-up with a smoke and flame specialist (AISHA POWELL) Allergies and Home Medications Allergies Coded Allergies: zolpidem (Verified Allergy, Unknown, 01/22/23) Patient Home Medication List Home Medication List Reviewed: Yes (AISHA POWELL) Ferrous Sulfate (Iron) 325 Mg (65 Mg Iron) Tablet, 325 MG PO DAILY, (Reported) Entered as Reported by: ROJAS NAVARRETE on 01/22/23 0632 Ibuprofen (Ibu) 600 Mg Tablet, 600 MG PO Q6HR PRN for PAIN-MILD (1-4) Prescribed by: ROJAS NAVARRETE on 01/23/23 0745 Labetalol HCl (Labetalol HCl) 100 Mg Tablet, 100 MG PO BID, (Reported) Entered as Reported by: ROJAS NAVARRETE on 01/22/23 0632 Gyx355/Ferrous Fumarate/FA (Gs Vitamins Tablet) 28 Mg Iron-800 Mcg Tablet, 1 TAB PO DAILY, (Reported) Entered as Reported by: ROJAS NAVARRETE on 01/22/23 0632 Review of Systems Review of Systems Constitutional: No chills, No diaphoresis EENTM: No hearing loss, No ear pain, No blurred vision Respiratory: No cough, No dyspnea on exertion Cardiovascular: No chest pain, No edema, No Hx of Intervention Gastrointestinal: No abdominal pain, No diarrhea, No nausea, No vomiting Genitourinary: No decreased output, No discharge Musculoskeletal: No back pain, No joint pain Skin: No change in color, No change in hair/nails (AISHA POWELL) All Other Systems Reviewed Negative Unless Noted: Yes (AISHA POWELL) Past Lbryfim-Obwdbj-Yzmbfw Hx Immunizations Up To Date Tetanus Booster (TDap): Less than 5yrs (AISHA POWELL) Past Medical History Surgeries: No Respiratory: No Cardiac: Yes Hypertension Neurological: No LEATHER CRAFTER History: IUD Genitourinary: No Gastrointestinal: No Musculoskeletal: No Endocrine: No HEENT: No Cancer: No Psychosocial: Yes Anxiety, Depression Adverse Reaction/Blood Tranf: No (AISHA POWELL) Physical Exam Vital Signs Vital Signs - First Documented 05/19/23 05/19/23 12:13 13:22 Temp 36.8 Pulse 99 Resp 14 B/P (MAP) 161/114 (130) Pulse Ox 96 O2 Delivery Room Air (ALONZO,SHANTI K DO) Vital Signs Capillary Refill : (AISHA POWELL) Height, Weight, BMI Height: '" Weight: lbs. oz. kg; 23.00 BMI Method: General Appearance: No Apparent Distress, WD/WN Eyes: Bilateral Eye Normal Inspection, Bilateral Eye PERRL HEENT: PERRL/EOMI, TMs Normal, Normal ENT Inspection, Pharynx Normal Neck: Full Range of Motion, Normal Inspection, Non Tender, Supple Respiratory: Chest Non Tender, Lungs Clear, Normal Breath Sounds, No Accessory Muscle Use, No Respiratory Distress Cardiovascular: Regular Rate, Rhythm, No Edema, No Gallop, No JVD, No Murmur Gastrointestinal: Normal Bowel Sounds, No Organomegaly, No Pulsatile Mass, Non Tender Back: Normal Inspection, No CVA Tenderness Neurologic/Psychiatric: Alert, Oriented x3, No Motor/Sensory Deficits, Normal Mood/Affect, section supervisor II-XII Norm as Tested Skin: Normal Color, Warm/Dry (AISHA POWELL) Progress/Results/Core Measures Suspected Sepsis SIRS Temperature: Pulse: 99 Respiratory Rate: 14 Laboratory Tests 05/19/23 12:27: White Blood Count 6.7 Blood Pressure 161 /114 Mean: 130 Laboratory Tests 05/19/23 12:27: Creatinine 0.83, Platelet Count 258, Total Bilirubin 1.0 (AISHA POWELL) Results/Orders Lab Results Laboratory Tests Test 05/19/23 12:27 05/19/23 12:41 Range/Units White Blood Count 6.7 4.3-11.0 10^3/uL Red Blood Count 4.64 3.80-5.11 10^6/uL Hemoglobin 13.5 11.5-16.0 g/dL Hematocrit 41 35-52 % Mean Corpuscular Volume 89 80-99 fL Mean Corpuscular Hemoglobin 29 25-34 pg Mean Corpuscular Hemoglobin Concent 33 32-36 g/dL Red Cell Distribution Width 13.2 10.0-14.5 % Platelet Count 258 130-400 10^3/uL Mean Platelet Volume 10.3 9.0-12.2 fL Immature Granulocyte % (Auto) 0 % Neutrophils (%) (Auto) 60 42-75 % Lymphocytes (%) (Auto) 29 12-44 % Monocytes (%) (Auto) 9 0-12 % Eosinophils (%) (Auto) 1 0-10 % Basophils (%) (Auto) 1 0-10 % Neutrophils # (Auto) 4.0 1.8-7.8 10^3/uL Lymphocytes # (Auto) 2.0 1.0-4.0 10^3/uL Monocytes # (Auto) 0.6 0.0-1.0 10^3/uL Eosinophils # (Auto) 0.1 0.0-0.3 10^3/uL Basophils # (Auto) 0.0 0.0-0.1 10^3/uL Immature Granulocyte # (Auto) 0.0 0.0-0.1 10^3/uL Sodium Level 139 135-145 MMOL/L Potassium Level 4.0 3.6-5.0 MMOL/L Chloride Level 104 98-107 MMOL/L Carbon Dioxide Level 25 21-32 MMOL/L Anion Gap 10 5-14 MMOL/L Blood Urea Nitrogen 16 7-18 MG/DL Creatinine 0.83 0.60-1.30 MG/DL Estimat Glomerular Filtration Rate 100 BUN/Creatinine Ratio 19 Glucose Level 96 70-105 MG/DL Calcium Level 10.0 8.5-10.1 MG/DL Corrected Calcium 8.5-10.1 MG/DL Total Bilirubin 1.0 0.1-1.0 MG/DL Aspartate Amino Transf (AST/SGOT) 17 5-34 U/L Alanine Aminotransferase (ALT/SGPT) 16 0-55 U/L Alkaline Phosphatase 88 40-136 U/L Total Protein 7.8 6.4-8.2 GM/DL Albumin 4.7 H 3.2-4.5 GM/DL Urine Color YELLOW Urine Clarity CLEAR Urine pH 7.0 5-9 Urine Specific [place] 1.020 1.016-1.022 Urine Protein NEGATIVE NEGATIVE Urine Glucose (UA) NEGATIVE NEGATIVE Urine Ketones NEGATIVE NEGATIVE Urine Nitrite NEGATIVE NEGATIVE Urine Bilirubin NEGATIVE NEGATIVE Urine Urobilinogen 0.2 < = 1.0 MG/DL Urine Leukocyte Esterase NEGATIVE NEGATIVE Urine RBC (Auto) 3+ H NEGATIVE Urine RBC 25-50 H /HPF Urine WBC NONE /HPF Urine Squamous Epithelial Cells 0-2 /HPF Urine Crystals NONE /LPF Urine Bacteria NEGATIVE /HPF Urine Casts NONE /LPF Urine Mucus NEGATIVE /LPF Urine Culture Indicated NO Urine Test NEGATIVE NEGATIVE (SHANTI ROSADO DO) Vital Signs/I&O 05/19/23 05/19/23 12:13 13:22 Temp 36.8 Pulse 99 74 Resp 14 12 B/P (MAP) 161/114 (130) 142/100 Pulse Ox 96 O2 Delivery Room Air Room Air (SHANTI ROSADO DO) Vital Signs/I&O Capillary Refill : (AISHA POWELL) Blood Pressure Mean: 130 Departure Communication (PCP) RegurgPatient is around 12 weeks . History of hypertension since 10 years of age. Does take labetalol 100 mg twice daily. She is currently asymptomatic. She did have some mild headache and hand swelling this week. There is no swelling noted in her hands or feet or any current complaints at this time. Blood pressure initially 161/114. Obtain CBC, CMP and urinalysis. Urinalysis was negative for protein or infection. No evidence of . CBC grossly unremarkable. Normal platelets, red blood cells. Chemistry showed normal kidney function liver function. No evidence of hellp syndrome. Patient blood pressure continue to improve. Last blood pressure was 139/96. She has no chest pain or shortness of breath. She is currently asymptomatic. She had a e chocardiogram performed last year that showed mild mitral and tricuspid regurgitation. Ejection fraction 60%. Suggest at this time she consulted with her primary care physician to discuss potential changes in her medication. May want to add medication or make changes. If any worsening symptoms such as chest pain, headache, fluid retention to return back to ED (AISHA POWELL) Impression Primary Impression: hypertension Disposition: HOME, SELF-CARE Condition: Stable Departure-Patient Inst. Decision time for Depature: 13:12 (AISHA POWELL) Referrals: ROJAS NAVARRETE MD (PCP/Family) Primary Care Physician Patient Instructions: High blood pressure in adults Add. Discharge Instructions: Recommend contacting your primary care physician Dr. Navarrete to discuss further evaluation of the blood pressure may want to start a second medication. If any worsening symptoms such as chest pain short of breath, fluid retention severe head pain to return back to ED. All discharge instructions reviewed with patient and/or family. Voiced understanding. ATTENDING PHYSICIAN NOTE: I WAS PHYSICALLY PRESENT ER PHYSICIAN, BUT I WAS NOT INVOLVED IN ANY DECISION MAKING OR ANY CARE OF THIS PATIENT AND I AM NOT COLLABORATING PHYSICIAN. (SHANTI ROSADO DO) AISHA POWELL May 19, 2023 12:23 SHANTI ROSADO DO May 19, 2023 17:31
[2023-05-19 12:40] LABS: BASOPHILS % (AUTO) 1 % (0-10); EOSINOPHILS # (AUTO) 0.1 10^3/uL (0.0-0.3); EOSINOPHILS % (AUTO) 1 % (0-10); HEMATOCRIT 41 % (35-52); HEMOGLOBIN 13.5 g/dL (11.5-16.0); LYMPHOCYTES % (AUTO) 29 % (12-44); MEAN CORPUSCULAR HEMOGLOBIN 29 pg (25-34); MEAN CORPUSCULAR HGB CONC 33 g/dL (32-36); MEAN CORPUSCULAR VOLUME 89 fL (80-99); MEAN PLATELET VOLUME 10.3 fL (9.0-12.2); MONOCYTES # (AUTO) 0.6 10^3/uL (0.0-1.0); MONOCYTES % (AUTO) 9 % (0-12); NEUTROPHILS % (AUTO) 60 % (42-75); PLATELET COUNT 258 10^3/uL (130-400); WHITE BLOOD COUNT 6.7 10^3/uL (4.3-11.0)
[2023-05-19 12:52] LABS: ALBUMIN 4.7 GM/DL (3.2-4.5)
[2023-05-19 12:53] LABS: CHLORIDE 104 MMOL/L (98-107); SODIUM 139 MMOL/L (135-145)
[2023-05-19 12:55] LABS: GLUCOSE 96 MG/DL (70-105); TOTAL PROTEIN 7.8 GM/DL (6.4-8.2)
[2023-05-19 12:56] LABS: CARBON DIOXIDE 25 MMOL/L (21-32)
[2023-05-19 12:58] LABS: ALKALINE PHOSPHATASE 88 U/L (40-136); CREATININE SERUM 0.83 MG/DL (0.60-1.30); GFR ESTIMATED 100
[2023-05-19 13:00] LABS: BUN/CREATININE RATIO 19
[2023-05-19 13:01] LABS: ALANINE AMINOTRANSFERASE 16 U/L (0-55)
[2023-05-19 13:06] LABS: BILIRUBIN,URINE NEGATIVE (NEGATIVE); CLARITY,URINE CLEAR; COLOR,URINE YELLOW; GLUCOSE, URINE (UA) NEGATIVE (NEGATIVE); KETONES,URINE NEGATIVE (NEGATIVE); NITRITE,URINE NEGATIVE (NEGATIVE); PROTEIN,URINE NEGATIVE (NEGATIVE)
[2023-05-19 13:07] LABS: BACTERIA,URINE NEGATIVE /HPF; LEUKOCYTE ESTERASE ,URINE NEGATIVE (NEGATIVE); RBC,URINE 25-50 /HPF; SQUAMOUS EPITHELIAL CELL,UR 0-2 /HPF
[2023-05-19 13:22] VITALS: BP 142/100
== END 2023-05-19 13:23 | disposition home or self-care (01) ==
LOC: EDUNIT# 12:08 → ER 12:09
DX: I10 Essential (primary) hypertension (principal); Z79.899 Other long term (current) drug therapy
CPT/HCPCS: 36415; 80053; 81000; 84703; 85025; 99282